=== PATIENT | male | born 1955 | race Caucasian/White ===

== ENCOUNTER 2017-10-07 14:00 | Emergency (ER) | payer BC ==
[2017-10-07 14:32] VITALS: BP 119/84
--- NOTE | 2017-10-07 15:07 | UC ---
Respiratory Complaint HPI - HPI Summary HPI Summary: 62 yo male with 3 weeks of waxing and waning illness fever chills fatigue cough (productive) no sinus symptoms hx of bronchitis and pneumonia no SOB smoker - History of Current Complaint Chief Complaint: UCGeneralIllness Stated Complaint: COLD LIKE SXS Time Seen by Provider: 10/07/17 14:48 Hx Obtained From: Patient Onset/Duration: Gradual Onset, Lasting Weeks Timing: Constant Severity Initially: Moderate Severity Currently: Moderate Pain Intensity: 5 Pain Scale Used: 0-10 Numeric Character: Cough: Productive Aggravating Factors: Exertion, Deep Breaths Alleviating Factors: Nothing Associated Signs And Symptoms: Positive: Chills. Negative: Pleuritic Chest Pain - but chest hurst when he coughs - Allergies/Home Medications Allergies/Adverse Reactions: Allergies Allergy/AdvReac Type Severity Reaction Status Date / Time No Known Allergies Allergy Verified 11/24/15 20:43 Home Medications: Home Medications Eucalyptus/Menthol [Cough Drops] 10/07/17 [History] Pheniramine/P-Eph/Acetaminophn [Theraflu Flu & Sore Throat] 10/07/17 [History] guaiFENesin [Mucinex] 10/07/17 [History] PMH/Surg Hx/FS Hx/Imm Hx Previously Healthy: Yes Respiratory History: Bronchitis, Pneumonia - Surgical History Surgical History: Yes Surgery Procedure, Year, and Place: partial amputation of 4th finger on L hand - Family History Known Family History: Positive: Hypertension, Diabetes - Social History Alcohol Use: Daily Alcohol Amount: 4-5 cans of beer daily Substance Use Type: None Smoking Status (MU): Heavy Every Day Tobacco Smoker Type: Cigarettes Amount Used/How Often: 1 ppd Length of Time of Smoking/Using Tobacco: 40 + yrs Have You Smoked in the Last Year: Yes Cessation Counseling: Patient Advised to Stop Review of Systems Constitutional: Chills, Fatigue Skin: Negative Eyes: Negative ENT: Negative Respiratory: Cough Cardiovascular: Negative Gastrointestinal: Negative Genitourinary: Negative Motor: Negative Neurovascular: Negative Musculoskeletal: Negative Neurological: Negative Psychological: Negative Is Patient Immunocompromised?: No All Other Systems Reviewed And Are Negative: Yes Physical Exam Triage Information Reviewed: Yes Appearance: No Pain Distress, Thin Vital Signs: Initial Vital Signs Temp 99.0 F 10/07/17 14:27 Pulse 97 10/07/17 14:27 Resp 18 10/07/17 14:27 BP 119/84 10/07/17 14:27 Pulse Ox 96 10/07/17 14:27 Vital Signs Reviewed: Yes Eyes: Positive: Conjunctiva Clear ENT: Positive: Hearing grossly normal, Uvula midline. Negative: Tonsillar swelling, Tonsillar exudate, Trismus, Muffled voice, Hoarse voice, Sinus tenderness Dental: Positive: Other: - upper plate Neck: Positive: Supple, Nontender, No Lymphadenopathy Respiratory: Positive: No respiratory distress, No accessory muscle use, Decreased breath sounds, Wheezing - with forced expiration Cardiovascular: Positive: RRR, No Murmur. Negative: Tachycardia, Bradycardia Musculoskeletal: Positive: ROM Intact, No Edema Neurological: Positive: Alert, Muscle Tone Normal Psychological Exam: Normal Skin Exam: Normal UC Diagnostic Evaluation - Laboratory O2 Sat by Pulse Oximetry: 96 - normal/not hypoxic - Radiology Xray Interpretation: No Acute Changes - stigmata of COPD Radiology Interpretation Completed By: Radiologist Respiratory Course/Dx - Differential Dx/Diagnosis Provider Diagnoses: acute bronchitis with bronchospasm. tobacco abuse Discharge - Discharge Plan Condition: Stable Disposition: HOME Prescriptions: Amoxicillin PO (*) [Amoxicillin 875 MG (*)] 875 mg PO BID #20 tab predniSONE [Deltasone] 40 mg PO DAILY #8 tab Patient Education Materials: How to Stop Smoking (ED), Acute Bronchitis (ED) Referrals: [facility] [place] [facility] [Outside] - If Needed (they can help you find a doctor) Additional Instructions: recheck for new or worsening symptoms recheck in 5-10 days if not better use inhaler as directed for 7 days then as needed YOU NEED TO STOP SMOKING YOU XR LOOKS LIKE YOU HAVE COPD you need to find a local MD to manage your health care
--- NOTE | 2017-10-07 15:23 | RAD ---
INDICATION: Cough for 3 weeks. COMPARISON: Comparison is made with a prior study from November 24, 2015. TECHNIQUE: Dual-energy PA and lateral views of the chest were obtained. FINDINGS: The heart is within normal limits in size. Mediastinal and hilar contours appear within normal limits. The lungs are hyperinflated and clear. No pleural effusion is seen. IMPRESSION: FINDINGS CONSISTENT WITH COPD, NO EVIDENCE FOR ACUTE FINDING.
[2017-10-07] MEDS ORDERED: Albuterol HFA INHALER* 8 gm MDI INH ONE (15:31)
[2017-10-07] MEDS ORDERED: predniSONE TAB* 20 MG PO ONE (15:32)
== END 2017-10-07 15:49 | disposition home or self-care (01) ==
LOC: UCCORT 14:00
DX: J20.9 Acute bronchitis, unspecified (principal); F17.210 Nicotine dependence, cigarettes, uncomplicated
CPT/HCPCS: 71046; 99213; A9270-GY; G0463; J7512

== ENCOUNTER 2017-10-16 09:14 | Emergency (ER) | payer BC ==
[2017-10-16 09:27] VITALS: BP 115/66
--- NOTE | 2017-10-16 10:31 | UC ---
Ear Complaint HPI - HPI Summary HPI Summary: 62 yo smoker WM c/o persistent productive cough x 10 days and worsening right ear pain and worsening cough in spite of taking amoxicillin - History of Current Complaint Chief Complaint: UCRespiratory Stated Complaint: COUGH,CONGESTED Time Seen by Provider: 10/16/17 10:07 Hx Obtained From: Patient Pain Intensity: 5 - Allergies/Home Medications Allergies/Adverse Reactions: Allergies Allergy/AdvReac Type Severity Reaction Status Date / Time No Known Allergies Allergy Verified 10/16/17 09:20 PMH/Surg Hx/FS Hx/Imm Hx - Additional Past Medical History Additional PMH: COPD Previously Healthy: Yes - Surgical History Surgical History: Yes Surgery Procedure, Year, and Place: partial amputation of 4th finger on L hand - Family History Known Family History: Positive: Hypertension, Diabetes - Social History Alcohol Use: Daily Alcohol Amount: 4-5 cans of beer daily Substance Use Type: None Smoking Status (MU): Heavy Every Day Tobacco Smoker Type: Cigarettes Amount Used/How Often: 1 ppd Length of Time of Smoking/Using Tobacco: 40 + yrs Have You Smoked in the Last Year: Yes Review of Systems Constitutional: Negative Skin: Negative Eyes: Negative ENT: Ear Ache Respiratory: Cough Cardiovascular: Negative Gastrointestinal: Negative Genitourinary: Negative Motor: Negative Neurovascular: Negative Musculoskeletal: Negative Neurological: Negative Psychological: Negative All Other Systems Reviewed And Are Negative: Yes Physical Exam Triage Information Reviewed: Yes Vital Signs: Initial Vital Signs Temp 37.2 C 10/16/17 09:24 Pulse 87 10/16/17 09:24 Resp 15 10/16/17 09:24 BP 115/66 10/16/17 09:24 Pulse Ox 95 10/16/17 09:24 Eye Exam: Normal ENT Exam: Normal ENT: Positive: Pharynx normal, TM red - on right with B/L post. auricular LN tenderness Dental Exam: Normal Neck exam: Normal Neck: Positive: 1 Respiratory Exam: Normal Cardiovascular Exam: Normal Abdominal Exam: Normal Musculoskeletal Exam: Normal Neurological Exam: Normal Psychological Exam: Normal Skin Exam: Normal Ear Complaint Course/Dx - Differential Dx/Diagnosis Differential Diagnosis/HQI/PQRI: Bronchitis, Otitis Media Provider Diagnoses: Right OM. Bronchitis. cough Discharge - Discharge Plan Condition: Stable Disposition: HOME Prescriptions: Levofloxacin TAB* [Levaquin TAB*] 750 mg PO DAILY 5 Days #5 tab Patient Education Materials: Ear Infection (ED), Acute Bronchitis (ED) Referrals: No Primary Care Phys,NOPCP [Primary Care Provider] - Additional Instructions: Discontinue Amoxicillin, start Levaquin once a day for 5 more days. f/u with PCP if symptoms persist
== END 2017-10-16 10:30 | disposition home or self-care (01) ==
LOC: UCEAST 09:14
DX: J40 Bronchitis, not specified as acute or chronic (principal); F17.210 Nicotine dependence, cigarettes, uncomplicated
CPT/HCPCS: 99212; G0463

== ENCOUNTER 2018-08-28 11:51 | Emergency (ER) | payer BC ==
[2018-08-28 12:08] VITALS: BP 129/83
--- NOTE | 2018-08-28 13:17 | UC ---
UC General HPI - HPI Summary HPI Summary: sinus congestion, ear pain, cough and sore throat x 2 weeks. took otc tx and everything started to improve except for the sore throat. - History of Current Complaint Chief Complaint: UCGeneralIllness Stated Complaint: ST Time Seen by Provider: 08/28/18 13:04 Hx Obtained From: Patient Onset/Duration: Gradual Onset Timing: Constant Pain Intensity: 5 Associated Signs & Symptoms: Negative: Chest Pain, Fever, SOB, Wheezing - Allergy/Home Medications Allergies/Adverse Reactions: Allergies Allergy/AdvReac Type Severity Reaction Status Date / Time No Known Allergies Allergy Verified 10/16/17 09:20 Home Medications: Home Medications Silver Rhina 1 spray PO DAILY 08/28/18 [History] PMH/Surg Hx/FS Hx/Imm Hx Previously Healthy: Yes - Surgical History Surgical History: Yes Surgery Procedure, Year, and Place: partial amputation of 4th finger on L hand - Family History Known Family History: Positive: Hypertension, Diabetes - Social History Occupation: Employed Full-time Alcohol Use: Daily Alcohol Amount: 4-5 cans of beer daily Substance Use Type: None Smoking Status (MU): Heavy Every Day Tobacco Smoker Type: Cigarettes Amount Used/How Often: 1 ppd Length of Time of Smoking/Using Tobacco: 40 + yrs Have You Smoked in the Last Year: Yes Review of Systems All Other Systems Reviewed And Are Negative: Yes Constitutional: Positive: Negative Skin: Positive: Negative Eyes: Positive: Negative ENT: Positive: Sore Throat, Ear Ache, Sinus Congestion Respiratory: Positive: Cough Cardiovascular: Positive: Negative Gastrointestinal: Positive: Negative Genitourinary: Positive: Negative Motor: Positive: Negative Neurovascular: Positive: Negative Musculoskeletal: Positive: Negative Neurological: Positive: Negative Psychological: Positive: Negative Is Patient Immunocompromised?: No Physical Exam Triage Information Reviewed: Yes Appearance: Well-Appearing Vital Signs: Initial Vital Signs Temp 98.3 F 08/28/18 12:05 Pulse 78 08/28/18 12:05 Resp 18 08/28/18 12:05 BP 129/83 08/28/18 12:05 Pulse Ox 98 08/28/18 12:05 Vital Signs Reviewed: Yes Eyes: Positive: Conjunctiva Clear ENT: Positive: Pharyngeal erythema - mild, TMs normal, Uvula midline - with mild swelling and erythema. Negative: Nasal drainage, Trismus, Muffled voice, Hoarse voice, Sinus tenderness Neck: Positive: Supple, Nontender, No Lymphadenopathy Respiratory: Positive: Lungs clear, Normal breath sounds Cardiovascular: Positive: RRR, No Murmur Abdomen Description: Positive: Nontender, No Organomegaly, Soft Bowel Sounds: Positive: Present Musculoskeletal: Positive: ROM Intact Neurological: Positive: Alert Psychological: Positive: Age Appropriate Behavior Skin Exam: Normal Course/Dx - Course Course Of Treatment: need for close f/u to resolution stressed at time of visit given pt hx of smoking, pt agrees. will tx for presumtive bacterial infection. pt has been to [facility] in past thus will refer to them for f/u. - Differential Dx - Multi-Symptom Differential Diagnoses: Other - uri, bronchitis, pharyngitis, om, uvulitis. - Diagnoses Provider Diagnosis: Uvulitis Discharge - Sign-Out/Discharge Documenting (check all that apply): Patient Departure All imaging exams completed and their final reports reviewed: No Studies - Discharge Plan Condition: Stable Disposition: HOME Prescriptions: Amoxicillin/Clavulanate TAB* [Augmentin TAB 875*] 875 mg PO BID 10 Days #20 tab Patient Education Materials: Uvulitis (ED) Referrals: AMY Hilton [Medical Doctor] - 5 Days - Billing Disposition and Condition Condition: STABLE Disposition: Home
[2018-08-28] MEDS ORDERED: Dexamethasone TAB* 4 MG PO ONE (13:18)
== END 2018-08-28 13:28 | disposition home or self-care (01) ==
LOC: UCCORT 11:51
DX: K12.2 Cellulitis and abscess of mouth (principal); R09.81 Nasal congestion; H92.09 Otalgia, unspecified ear; F17.210 Nicotine dependence, cigarettes, uncomplicated; Z89.022 Acquired absence of left finger(s)
CPT/HCPCS: 99212; G0463; J8540

== ENCOUNTER 2018-09-03 11:19 | Emergency (ER) | payer BC ==
[2018-09-03 11:38] VITALS: BP 117/76
--- NOTE | 2018-09-03 11:53 | UC ---
FLU HPI - HPI Summary HPI Summary: 62-year-old male resents with 2 day history of fever, chest congestion, occasional nonproductive cough, mild abdominal cramping, and 3 episodes of loose stool. He was seen at the [facility] on 08/28/2018 for a sore throat and started on Augmentin twice a day 10 days. States he took this for a total of 4 days and then stopped because it was causing him to have a headache. States his sore throat has subsided. Patient is a one pack-a-day smoker. Denies nasal congestion, sinus congestion, sore throat, chest pain, palpitations, shortness of breath, nausea, or vomiting. - History of Current Complaint Chief Complaint: UCRespiratory Stated Complaint: DIARRHEA Time Seen by Provider: 09/03/18 11:37 Hx Obtained From: Patient Pain Intensity: 5 - Allergy/Home Medications Allergies/Adverse Reactions: Allergies Allergy/AdvReac Type Severity Reaction Status Date / Time No Known Allergies Allergy Verified 09/03/18 11:38 PMH/Surg Hx/FS Hx/Imm Hx Respiratory History: COPD - Surgical History Surgical History: Yes Surgery Procedure, Year, and Place: partial amputation of 4th finger on L hand - Family History Known Family History: Positive: Hypertension, Diabetes - Social History Occupation: Employed Full-time Lives: Alone Alcohol Use: Daily Alcohol Amount: 4 drinks Substance Use Type: None Smoking Status (MU): Heavy Every Day Tobacco Smoker Type: Cigarettes Amount Used/How Often: 1 ppd Length of Time of Smoking/Using Tobacco: 40 + yrs Have You Smoked in the Last Year: Yes Review of Systems All Other Systems Reviewed And Are Negative: Yes Constitutional: Positive: Fever, Chills, Fatigue Skin: Negative: Rash Eyes: Negative: Drainage, Eye Redness ENT: Negative: Sore Throat, Ear Ache, Nasal Discharge, Sinus Congestion, Sinus Pain/Tenderness Respiratory: Positive: Cough. Negative: Shortness Of Breath Cardiovascular: Negative: Palpitations, Chest Pain Gastrointestinal: Positive: Abdominal Pain, Diarrhea. Negative: Vomiting, Nausea Genitourinary: Negative: Dysuria, Hematuria, Frequency, Urgency Musculoskeletal: Positive: Negative Neurological: Positive: Negative Is Patient Immunocompromised?: No Physical Exam - Summary Physical Exam Summary: GENERAL APPEARANCE: Alert and cooperative, and appears to be in no acute distress. EYES: Conjunctiva clear. No drainage. Vision is grossly intact. EARS: External auditory canals and tympanic membranes clear, hearing grossly intact. NOSE: No nasal congestion or discharge. THROAT: Pharynx normal. Notonsilar inflammation, swelling, exudate, or lesions. Uvula midline. NECK: Neck supple, non-tender without lymphadenopathy. CARDIAC: Normal S1 and S2. No S3, S4 or murmurs. Rhythm is regular. There is no peripheral edema, cyanosis or pallor. Extremities are warm and well perfused. Capillary refill is less than 2 seconds. LUNGS: Bilateral breath sounds mildly diminished but clear to auscultation without rales, rhonchi, wheezing. ABDOMEN: Positive bowel sounds. Soft, nondistended, nontender. No guarding or rebound. No masses or hepatosplenomegally. No CVA tenderness. MUSKULOSKELETAL: ROM intact to all extremities. No joint erythema or tenderness. Normal muscular development. Normal gait. SKIN: Skin normal color, texture and turgor with no lesions or eruptions. Triage Information Reviewed: Yes Vital Signs: Initial Vital Signs Temp 100.4 F 09/03/18 11:31 Pulse 92 09/03/18 11:31 Resp 16 09/03/18 11:31 BP 117/76 09/03/18 11:31 Pulse Ox 94 09/03/18 11:31 Vital Signs Reviewed: Yes Diagnostics - Laboratory Diagnostic Studies Completed/Ordered: Rapid flu negative. - Radiology No standard instances Radiology Interpretation Completed By: Radiologist Summary of Radiographic Findings: Patient Name: LULÚ UMANZOR Medical Record#: [id number]. Ordering Physician: Karl Orozco NP Acct.#: [id number]. : 1955 Age: 62 Sex: M Location: [facility]. Exam Date: 09/03/18 1152 ADM Status: REG ER. Order Information: CHEST PA LAT 2 VWS. Accession Number: [id number]. CPT: 12980. HISTORY: chest congestion, fever. COMPARISONS: October 07, 2017. VIEWS: 4: Frontal dual-energy and lateral views of the chest. FINDINGS: CARDIOMEDIASTINAL SILHOUETTE: The cardiomediastinal silhouette is normal. YOLANDA: The yolanda are normal. PLEURA: The costophrenic angles are sharp. No pleural abnormalities are noted. LUNG PARENCHYMA: There is hyperinflation with flattening of the diaphragm and expansion of the AP diameter of the chest. ABDOMEN: The upper abdomen is clear. There is no subphrenic gas. BONES AND SOFT TISSUES: No bone or soft tissue abnormalities are noted. OTHER: None. IMPRESSION: HYPERINFLATION, CONSISTENT WITH COPD. NO ACTIVE CARDIOPULMONARY DISEASE. Flu Course/Dx - Course Course Of Treatment: 62-year-old male resents with 2 day history of fever, chest congestion, occasional nonproductive cough, mild abdominal cramping, and 3 episodes of loose stool. He was seen at the [facility] on 08/28 for a sore throat and started on Augmentin twice a day 10 days. States he took this for a total of 4 days and then stopped because it was causing him to have a headache. States his sore throat has subsided. Patient is a one pack -a-day smoker. Denies nasal congestion, sinus congestion, sore throat, chest pain, palpitations, shortness of breath, nausea, or vomiting. Patient had a mildly elevated temperature of 100.4 F and a room air pulse ox of 94% otherwise vital signs within normal parameters. Exam revealed an older adult male in no acute distress. Exam was unremarkable except for some mildly diminished bilateral breath sounds. Chest x-ray showed evidence of COPD but no acute cardiopulmonary pathology. Rapid flu was negative. I will treat the patient for an acute bronchitis and prescribe a course of azithromycin especially considering his COPD history and that he was incompletely treated for his recent sore throat. His reports of loose stool may be related to his recent taking of Augmentin but I have a very low suspicion for C. difficile. Patient is to follow-up with his primary care provider in 3-5 days for recheck of his symptoms. Anticipatory guidance and warning symptoms were reviewed with the patient. Verbalizes understanding and agrees with plan of care. - Differential Dx/Diagnosis Differential Diagnosis/HQI/PQRI: Bronchitis, Influenza, Pneumonia, Upper Respiratory Infection Provider Diagnosis: Bronchitis, COPD (chronic obstructive pulmonary disease), Diarrhea Discharge - Sign-Out/Discharge Documenting (check all that apply): Patient Departure All imaging exams completed and their final reports reviewed: Yes - Discharge Plan Condition: Stable Disposition: HOME Prescriptions: Azithromyxin JOHNNY (NF) [Z-Johnny (Zithromax) 250 mg tabs #6] 2 tab PO .TODAY, THEN 1 DAILY #6 tab Patient Education Materials: Acute Bronchitis (ED), Acute Diarrhea (ED) Referrals: No Primary Care Phys,NOPCP [Primary Care Provider] - Bradley Waddell [Nurse Practitioner] - 5 Days (Follow up in 3-5 days for recheck of symptoms.) Additional Instructions: Your history and exam are consistent with acute bronchitis. With your history of COPD and I will treat you with an antibiotic. Take azithromycin 2 tabs today and then 1 tab a day for next 4 days. Get plenty of rest. Drink plenty of fluids especially if you are running fever or have diarrhea. Run a cool mist humidifer in your room at night. Take over the counter acetaminophen (Tylenol) or ibuprofen (Advil, Motrin) according to directions as needed for pain or fever. Follow up with your primary care provider in 3-5 days for recheck of symptoms. Seek immediate medical attention in the emergency room if you have fever greater than 100.5 F despite taking acetaminophen or ibuprofen, have chest pain , difficulty breathing, or have any worsening of symptoms. - Billing Disposition and Condition Condition: STABLE Disposition: Home - Attestation Statements Provider Attestation: Per institutional requirements, I have reviewed the chart, however, I was not consulted specifically or made aware of this patient by the midlevel provider. I did not personally evaluate, interact with , or disposition this patient.
[2018-09-03 12:57] LABS: Influenza A Molecular NEGATIVE (Negative); Influenza B Molecular NEGATIVE (Negative)
== END 2018-09-03 13:25 | disposition home or self-care (01) ==
LOC: UCEAST 11:19
DX: J44.9 Chronic obstructive pulmonary disease, unspecified (principal); R19.7 Diarrhea, unspecified; R10.9 Unspecified abdominal pain; F17.210 Nicotine dependence, cigarettes, uncomplicated
CPT/HCPCS: 71046; 99212; G0463

== ENCOUNTER 2020-12-13 14:58 | Observation (INO) ==
[2020-12-13] MEDS ORDERED: NS 0.9% 1000 ml BAG 1,000 ML IV ONE ×2 (15:23→16:48)
[2020-12-13] MEDS ORDERED: Al Hydrox/Mg Hydrox/Simet LIQ 30 ML UDC PO ONE (15:23)
[2020-12-13 15:40] LABS: ABS Eosinophils 0.2 10^3/ul (0-0.6); ABS Lymphocytes 1.5 10^3/ul (1.0-4.8); ABS Monocytes 0.7 10^3/ul (0-0.8); Eosinophil % 3.3 %; Hematocrit 40 % (42-52); Hemoglobin 13.4 g/dL (14.0-18.0); Lymphocyte % 19.8 %; Mean Corpuscular HGB Conc 34 g/dL (31-36); Mean Corpuscular Hemoglobin 32 pg (27-31); Mean Corpuscular Volume 95 fL (80-94); Mean Platelet Volume 10.3 fL (7.4-10.4); Platelet Count 206 10^3/uL (150-450); Red Blood Count 4.16 10^6 /uL (4.18-5.48); Red Cell Distribution Width 14 % (10-15); White Blood Count 7.5 10^3/uL (3.5-10.8)
[2020-12-13 16:00] LABS: ALT 52 U/L (7-52); Albumin 4.1 g/dL (3.2-5.2); Alkaline Phosphatase 91 U/L (34-104); Blood Urea Nitrogen 14 mg/dL (6-24); CO2 Carbon Dioxide 30 mmol/L (22-32); Calcium 9.1 mg/dL (8.6-10.3); Chloride 105 mmol/L (101-111); EGFR African American 111.3 (>60); Globulin 2.1 g/dL (2-4); Glucose 143 mg/dL (70-100); Lipase 19 U/L (11.0-82.0); Sodium 141 mmol/L (135-145); Total Protein 6.2 g/dL (6.4-8.9)
[2020-12-13] MEDS ORDERED: Iodixanol (CONTRAST) 320 MG/ML 100 ML SDV IV ONE (16:04)
[2020-12-13] MEDS ORDERED: Ondansetron 4 mg VIAL 2 MG/ML 2 ml VIAL ONE (16:06)
[2020-12-13] MEDS ORDERED: Ondansetron 4 mg VIAL 2 MG/ML 2 ml VIAL IV ONE (16:07)
[2020-12-13 16:09] LABS: Anion Gap 6 mmol/L (2-11)
[2020-12-13 16:34] LABS: Alcohol, S < 10 mg/dL (<10)
[2020-12-13] MEDS ORDERED: Pantoprazole VIAL 40 MG VIAL IV ONE (16:47)
[2020-12-13] MEDS ORDERED: HYDROmorphone 0.5 MG/0.5 ML SYRINGE IV ONE (16:53)
[2020-12-13] MEDS ORDERED: Ondansetron 4 mg VIAL 2 MG/ML 2 ml VIAL IV PRN (18:16)
[2020-12-13] MEDS ORDERED: Albuterol HFA INHALER 8 gm MDI INH PRN (18:19)
[2020-12-13] MEDS ORDERED: Pantoprazole VIAL 40 MG VIAL IV SCH (19:30)
[2020-12-13] MEDS: Mometasone/Formoter 200/5 MDI INH SCH (20:30)
[2020-12-13 20:50] LABS: Potassium Redraw 4.1 mmol/L (3.5-5.0)
[2020-12-13 20:53] LABS: Troponin I 0.01 ng/mL (<0.03)
[2020-12-13] MEDS: NS 0.9% 1000 ml BAG 1,000 ML IV SCH (20:58)
[2020-12-14 05:18] LABS: ABS Eosinophils 0.2 10^3/ul (0-0.6); ABS Lymphocytes 1.4 10^3/ul (1.0-4.8); ABS Monocytes 0.9 10^3/ul (0-0.8); ABS Neutrophils 4.7 10^3/ul (1.5-7.7); Eosinophil % 2.3 %; Hematocrit 38 % (42-52); Hemoglobin 12.7 g/dL (14.0-18.0); Lymphocyte % 19.5 %; Mean Corpuscular HGB Conc 33 g/dL (31-36); Mean Corpuscular Hemoglobin 32 pg (27-31); Mean Corpuscular Volume 97 fL (80-94); Platelet Count 175 10^3/uL (150-450); Red Blood Count 3.96 10^6 /uL (4.18-5.48); Red Cell Distribution Width 14 % (10-15); White Blood Count 7.3 10^3/uL (3.5-10.8)
[2020-12-14 05:32] LABS: INR 0.9 (0.82-1.09)
[2020-12-14 05:36] LABS: Blood Urea Nitrogen 9 mg/dL (6-24); CO2 Carbon Dioxide 30 mmol/L (22-32); Calcium 8.2 mg/dL (8.6-10.3); Chloride 109 mmol/L (101-111); EGFR African American 116.1 (>60); EGFR Non-African American 95.9 (>60); Glucose 92 mg/dL (70-100); Potassium 3.9 mmol/L (3.5-5.0); Sodium 139 mmol/L (135-145)
[2020-12-14] MEDS: Mometasone/Formoter 200/5 MDI INH SCH (07:48)
[2020-12-14] MEDS ORDERED: Pantoprazole VIAL 40 MG VIAL IV SCH (09:00)
[2020-12-14] MEDS: NS 0.9% 1000 ml BAG 1,000 ML IV SCH (13:17)
[2020-12-14] MEDS ORDERED: fentaNYL 100 mcg/2 ml 50 MCG/ML VIAL ONE (13:54)
[2020-12-14] MEDS ORDERED: Midazolam 10 mg/10 ml VIAL 1 mg/ml 10 ml VIAL (10 mg) ONE (13:54)
[2020-12-15] MEDS: Mometasone/Formoter 200/5 MDI INH SCH ×2 (03:50→07:49)
[2020-12-15 06:02] LABS: ABS Basophils 0.1 10^3/ul (0-0.2); ABS Eosinophils 0.4 10^3/ul (0-0.6); ABS Lymphocytes 1.6 10^3/ul (1.0-4.8); ABS Monocytes 0.8 10^3/ul (0-0.8); ABS Neutrophils 5.1 10^3/ul (1.5-7.7); Eosinophil % 4.6 %; Hematocrit 38 % (42-52); Hemoglobin 12.9 g/dL (14.0-18.0); Lymphocyte % 20.5 %; Mean Corpuscular HGB Conc 34 g/dL (31-36); Mean Corpuscular Hemoglobin 32 pg (27-31); Mean Corpuscular Volume 96 fL (80-94); Platelet Count 178 10^3/uL (150-450); Red Blood Count 3.99 10^6 /uL (4.18-5.48); Red Cell Distribution Width 14 % (10-15)
[2020-12-15 06:18] LABS: Albumin 3.4 g/dL (3.2-5.2); Albumin/Globulin Ratio 1.9 (1-3); Calcium 8.4 mg/dL (8.6-10.3); EGFR African American 124.9 (>60); EGFR Non-African American 103.3 (>60); Globulin 1.8 g/dL (2-4); Total Bilirubin 0.5 mg/dL (0.2-1.0); Total Protein 5.2 g/dL (6.4-8.9)
[2020-12-15 08:38] VITALS: BP 110/64
== END 2020-12-15 10:46 | disposition home or self-care (01) ==
LOC: MEDTELE 14:58 → ED 14:58
PROVIDERS: ADMIT Internal Medicine; ATTEND Internal Medicine